=== PATIENT | female | born 2000 | race Two or more races ===

== ENCOUNTER 2023-11-22 10:27 | Emergency (ER) | payer OTHER ==
[2023-11-22 10:45] VITALS: BP 115/66; PULSE 100; RESP 18; BMI 23.3
== END 2023-11-22 11:39 | disposition home or self-care (01) ==
LOC: JERFT 10:27 → JER 10:27 → JERFT 11:39
DX: R21 Rash and other nonspecific skin eruption (principal); L25.9 Unspecified contact dermatitis, unspecified cause; L29.9 Pruritus, unspecified
CPT/HCPCS: 99282-25

== ENCOUNTER 2023-12-31 17:51 | Emergency (ER) | payer OTHER ==
[2023-12-31 17:58] VITALS: BP 119/65; PULSE 126; RESP 16; BMI 22.6
[2023-12-31] MEDS ORDERED: ACETAMINOPHEN 325 MG TABLET (FP) PO ONE (18:05)
[2023-12-31] MEDS ORDERED: ACETAMINOPHEN 325 MG TABLET (FP) ONE (18:10)
[2023-12-31 18:45] VITALS: TEMP 101.6
== END 2023-12-31 19:11 | disposition home or self-care (01) ==
LOC: FER 17:51
DX: R50.9 Fever, unspecified (principal); R05.9 Cough, unspecified; B34.9 Viral infection, unspecified; Z20.822 Contact with and (suspected) exposure to COVID-19
CPT/HCPCS: 0241U-QW; 71046-TC-FY; 99284-25